=== PATIENT | female | born 1980 | race Caucasian/White ===

== ENCOUNTER 2019-03-15 13:03 | Observation (INO) | payer MEDICARE, MEDICAID ==
[~2019-03-15 13:03] MED LIST: ISOVUE-370 76%-LOCM 1 ML ONE
--- NOTE | 2019-03-15 14:16 | CT ---
SOFT TISSUE NECK CT WITH CONTRAST: HISTORY: Difficulty swallowing. Dysphagia. FINDINGS: The visualized brain parenchyma and orbits are unremarkable. Adequate aeration of the sinuses and mastoid air cells. Limited evaluation of the oral cavity due to dental amalgam artifact. Midline fatty raphe of the [place] k[place] appears o be preserved. The epiglottis is of normal caliber. Pre-epiglottic fat is preserved. The aerodigestive tract appears to be patent. Symmetric attenuation of the parotid and submandibular glands. Unremarkable thyroid gland. No evide nce of significant lymphadenopathy. Upper normal right level 2 lymph node, measuring 1.3 x 0.6 cm. Additional scattered nonspecific lymph nodes are noted. There is a round, nonenlarged lymph node in the left aspect of the neck, measuring 0.7 x 0.6 cm. The round configuration of the lymph node is somewhat atypical. The fatty hilum is not appreciated. There is an upper normal left level 2 lymph node, measuring 1.0 x 0.7 cm. Symmetric attenuation of the sternocleidomastoid muscles. Grossly, the great vessels are patent. Cervical spine vertebral body height is maintained. There is no fracture. No significant central canal stenosis or significant foraminal narrowing. The exam is unremarkable. Patchy groundglass opacities of the lung parenchyma. IMPRESSION: 1. No obvious masses in the aerodigestive tract. 2. Round left level 5 lymph nodes, nonspecific. If concern for malignancy, consider PET imaging . CODE T Transcribed Date/Time: 03/15/2019 2:26 PM
[2019-03-15] MEDS ORDERED: Acetaminophen 325 MG TAB PO PRN (20:34)
[2019-03-15] MEDS ORDERED: Senokot S 8.6-50 MG TAB PO PRN (20:34)
[2019-03-15] MEDS ORDERED: Dextrose 50% Abboject 50 ML SYRINGE SLOW IVP PRN (20:46)
[2019-03-15] MEDS ORDERED: HumaLOG 300 UNITS/3 ML VIAL SC PRN (20:46)
[2019-03-15] MEDS ORDERED: Dextrose 5% in Water 1,000 ML IV PRN (20:46)
[2019-03-15] MEDS: Famotidine 20 MG TAB PO SCH (22:20)
[2019-03-15 22:23] VITALS: BMI 43.9
--- NOTE | 2019-03-16 02:35 | HP ---
PRIMARY CARE PHYSICIAN: TYRA Bradley, [facility]. CODE STATUS: Patient is full code. CHIEF COMPLAINT: Difficulty swallowing, difficulty speaking. HISTORY OF PRESENT ILLNESS: The patient is a 38-year-old female with a past medical history of [facility] who presents with her guardian and adoptive mother, Tri Ochoa. The HPI was taken by both Ms. Ochoa and the patient. The patient is a [facility] patient who attends [facility] in [place] for the past 5 years. Over the past couple of weeks, the patient has become frustrated with some of the medical staff as well as some of the residents at [facility]. So much so that she eloped. After eloping the decision was made by her psychiatrist to start the patient on Klonopin and sertraline. The patient reports that those medicines make her very sleepy, so the past week she has stopped taking those medications. Today, she presented to the [place] ER with her adoptive mother for complaint of difficulty speaking and difficulty swallowing. At the [place] ER, CT without contrast of the brain was performed, which showed negative for any acute intracranial abnormality. The patient's NIH was noted to be 1 at that time for some dysarthria. The patient was transported to [facility] ER for higher level of care and an MRI of the brain. In the ER, the patient was alert and oriented x4, baseline per her zoo caretaker. NIH was 1 for dysarthria. PAST MEDICAL HISTORY: 1. Depression. 2. Sleep apnea. 3. Nonalcoholic fatty liver disease. 4. Hypertension. 5. Diabetes. 6. Hyperlipidemia. 7. Hypothyroidism. 8. Gastroesophageal reflux disease. 9. Anemia. PAST SURGICAL HISTORY: Hysterectomy in 2006, tubal ligation in 2001, right tear duct surgery 1984, ET tubes in 1981. FAMILY HISTORY: The patient has been adopted. PSYCHIATRIC HISTORY: Significant for depression. ALLERGIES: THE PATIENT REPORTS ALLERGIES TO SULFA, METFORMIN, BROMFED DM, AND BROMIDE SALTS. HOME MEDICATIONS: 1. Ferrous sulfate 325 mg p.o. daily. 2. Sertraline 100 mg p.o. b.i.d. 3. Glipizide ER 2.5 mg p.o. daily. 4. Lisinopril 5 mg p.o. daily. 5. Risperidone 3 mg p.o. b.i.d. 6. Fenofibrate 200 mg p.o. daily. 7. Omeprazole 20 mg p.o. daily. 8. Levothyroxine 75 mcg p.o. q.a.m. 9. Atorvastatin 40 mg p.o. daily. 10. Calcium with vitamin D 600 mg p.o. daily. REVIEW OF SYSTEMS: Dysarthria and dyshphagia. All other systems reviewed and are otherwise negative unless stated in the HPI. PHYSICAL EXAMINATION: VITAL SIGNS: Temperature 98 Fahrenheit oral, blood pressure 143/79, pulse 95, respirations 18, the patient is 94% on room air. HEENT: Head is atraumatic and normocephalic. Eyes, PERRLA. Extraocular muscles intact. Sclerae nonicteric. ENT; EACs clear. TMs normal. Nares patent. Oropharynx is clear. Moist mucous membranes. Uvula midline. NECK: Supple. No lymphadenopathy. Trachea midline. RESPIRATIONS: Even, unlabored. No rhonchi, wheezes, or rales. CARDIOVASCULAR: Regular rate and rhythm. No rubs or gallops. GI: Abdomen is distended, is soft, is nontender. No hepatosplenomegaly. EXTREMITIES: Upper extremities, no swelling. No edema. Palpable radial pulses. No clubbing or cyanosis. Bilateral lower extremities, no swelling, no edema, no clubbing, no cyanosis. Palpable pedal pulses. NEURO: The patient is alert and oriented x3. She does have some expressive aphasia. Otherwise, cranial nerves 2 through 7 are intact. Motor strength 5/ 5. Sensation intact. DTRs intact. Nonfocal. SKIN: The patient has multiple scattered crusting papular lesions to extremities and trunk. No associated streaking, fluctuance, or signs of infection. LABORATORY DATA: Sodium 142, potassium 4.1, carbon dioxide 27, AST 31, ALT 38. BUN is 12, creatinine is 0.82, glucose is 121. WBC 7.0, hemoglobin 12.3, hematocrit 36.6, platelets 181. PT 13, APTT 29.5, INR 1.0. CT without contrast of the brain showed no acute intracranial abnormality. EKG; sinus rhythm, sinus tach. ASSESSMENT AND PLAN: 1. Aphasia, dysphagia, rule out stroke. Currently on exam, the patient is showing some expressive aphasia. The patient has no other motor deficits. CT of brain at [facility] was negative. Brain MRI has been ordered. We have consulted Neuro. The patient has been given an aspirin. We will continue aspirin. We will repeat labs in the morning, BMP and CBC. We will consult stroke team. 2. Hypertension. We will restart the patient's home medications. 3. Hypothyroidism. We will restart the patient's home medications. 4. Hyperlipidemia. We will restart the patient's home medications. 5. Diabetes. We will hold the patient's home medications glipizide extended release. We will start Accu-Cheks before meals and at bedtime. We start sliding scale with Humalog. 6. Gastrointestinal and deep venous thrombosis prophylaxis. 7. Hospital course dependent on clinical findings. Job ID: [id number] MTDD
[2019-03-16 05:23] LABS: #Basophils 0.1 thou/uL (0.0-0.2); #Eosinphils 0.1 thou/uL (0.0-0.7); #Lymphocytes 1.3 thou/uL (1.20-3.40); #Monocytes 0.6 thou/uL (0.11-0.59); #Neutrophils 4.5 thou/uL (1.40-6.50); %Basophils 0.9 % (0.0-1.0); %Eosinophils 1.4 % (0.0-10.0); %Lymphocytes 19.6 % (21.0-51.0); %Monocytes 9.4 % (0.0-10.0); %Neutrophils 68.8 % (42.0-75.0); Hemoglobin 12.2 g/dL (12.0-16.0); Mean Corpuscular HGB CONC 34.6 g/dL (32.0-36.0); Mean Corpuscular Hemoglobin 30.9 pg (27.0-31.0); Mean Corpuscular Volume 89.2 fL (78.0-98.0); Mean Platelet Volume 7.9 fL (7.4-10.4); Platelet Count 180 thou/uL (130-400); RBC Distribution Width 12.1 % (11.5-14.5); Red Blood Cell (RBC) Count 3.94 mill/uL (4.20-5.40); White Blood Cell (WBC) Count 6.6 thou/uL (4.8-10.8)
[2019-03-16 05:48] LABS: ALT (SGPT) 31 U/L (8-55); AST (SGOT) 27 U/L (5-34); Albumin 4.3 g/dL (3.5-5.0); Alkaline Phosphatase 50 U/L (40-150); Anion Gap 13 mmol/L (10-20); BUN (Urea Nitrogen) 13 mg/dL (7.0-18.7); Bilirubin, Total 0.4 mg/dL (0.2-1.2); Calc. Creatinine Clearance 138 mL/min (70-130); Calcium 9.6 mg/dL (7.8-10.44); Carbon Dioxide 28 mmol/L (22-29); Cardiac Risk 3.2 (Less than 4.5); Chloride 101 mmol/L (98-107); Cholesterol 135 mg/dl (< 200 Desired); Estimated GFR-MDRD 76; Globulin 2.5 g/dL (2.4-3.5); Glucose 124 mg/dL (70-105); HDL Cholesterol 42 mg/dL (>60 Neg Risk); LDL Cholesterol, Calculated 68 mg/dL; Potassium 3.9 mmol/L (3.5-5.1); Protein, Total 6.8 g/dL (6.0-8.3); Sodium 138 mmol/L (136-145); Triglycerides 125 mg/dL (Less than 150)
--- NOTE | 2019-03-16 08:15 | ULT ---
US Carotid Doppler STANDARD History: [This or 3 a. Dysphagia.] Comparison: None. Findings: Real-time grayscale, color, and spectral analysis of the extracranial carotid and vertebral arteries was performed. No elevated peak systolic velocities within the internal carotid arteries. Antegrade flow both verteb ral arteries. Impression: No hemodynamically significant stenosis.
[2019-03-16] MEDS: Aspirin 325 mg Enteric Coated Tablet PO SCH (08:25)
[2019-03-16] MEDS: Enoxaparin Sodium 40 MG/0.4 ML SYRINGE SC SCH (08:25)
[2019-03-16] MEDS: Famotidine 20 MG TAB PO SCH ×2 (08:25→19:55)
[2019-03-16] MEDS: Lisinopril 5 MG TAB PO SCH (10:37)
[2019-03-16] MEDS: Atorvastatin Calcium 40 MG TAB PO SCH (10:37)
--- NOTE | 2019-03-16 11:47 | MRI ---
MRI Brain WO Con History: [Dysarthria. Lethargy] Comparison: None. Findings: On the diffusion weighted imaging sequence there are no foci of diffusion restriction. This is confirmed on the ADC map. The sun'aq of [place] flow voids are maintained. No hemorrhage on the susceptibility weighted sequence . No hydrocephalus. No midline shift. No edema. No focal area of demyelination. Impression: Normal MRI of the brain.
[2019-03-16] MEDS ORDERED: Loperamide HCl 2 MG CAP PO PRN (14:14)
[2019-03-16 16:12] LABS: Bilirubin Negative (Negative); Blood, Urine Negative (Negative); Clarity CLEAR (Clear); Glucose, Urine (Dipstick) 100 mg/dL (Negative); Leukocyte Negative (Negative); Nitrite Negative (Negative); Protein, Urine (Dipstick) Negative (Neg-Trace); Specific Gravity, Urine 1.005 (1.002-1.036); Urobilinogen 0.2 mg/dL (0.2-1.0); pH, Urine 6.5 (5.0-9.0)
[2019-03-16 16:15] LABS: Bacteria/HPF None Seen HPF (None Seen); Hyaline Casts/LPF 0-3 HYALINE CAST LPF (0-3 Hyaline); Pathc Cast-AUWi Flag 0.13 (0-2.49); RBC/HPF None Seen HPF (0-3); Squamous Epithelial None Seen HPF (0-3); WBC/HPF None Seen HPF (0-3)
[2019-03-16 16:17] LABS: Urine Culture Reflex No No
--- NOTE | 2019-03-16 19:54 | PRG ---
DATE OF SERVICE: 03/16/2019 This is Amada Farrar PA-C dictating a report for Marine Singh MD. SUBJECTIVE: Ms. Lam is an unfortunate 38-year-old female with past medical history for severe MR and cognitive delay, type 2 diabetes mellitus, obesity, hypertension, hypothyroidism, who presented to the hospital with complaints of difficulty speaking and difficulty swallowing. The patient has been admitted for stroke rule out, which has been negative. She has been evaluated by Dr. Simeon of Neurology. The patient continues to complain of problems of swallowing her breakfast this morning. She has been evaluated by Speech Therapy, who was recommending a pureed diet. Her only physical complaint today is interval development of diarrhea. She denies any fever, chills, or abdominal pain. OBJECTIVE: VITAL SIGNS: Blood pressure is 130/90, pulse is 84, O2 saturation is 97% on room air. The patient is afebrile at 97.7. GENERAL: The patient is a morbidly obese female, in no acute distress. She is lying comfortably in bed. HEENT: Head is atraumatic and normocephalic. Extraocular movements are intact, however, she does have a left lateral strabismus. CV: S1 and S2. Regular rate and rhythm. No appreciable murmurs, rubs, or gallops. NEC: Trachea is midline. No JVD. LUNGS: Regular respiratory rate and pattern. Clear to auscultation bilaterally. ABDOMEN: Positive bowel sounds. Soft, obese, nontender. EXTREMITIES: No edema. SKIN: Warm and dry. NEUROLOGIC: Cranial nerves 2 through 12 are grossly intact. The patient is nonfocal on my exam. LABORATORY DATA: Hemoglobin is 12.2, hematocrit 35.2, WBC 6.6, and platelets are 180. Sodium 138, potassium 3.9, anion gap is 13, BUN is 13, creatinine 0.85, calcium 9.6. AST, ALT, alkaline phosphatase all within normal limits. TSH is 3.6419. Triglycerides 125, cholesterol 135, LDL 68, HDL is 42. Urinalysis is negative. ASSESSMENT: 1. Halted speech, no expressive aphasia or obvious dysarthria, unclear etiology at this time, possible conversion disorder from anxiety and stress that the patient has been experiencing, MRI negative for cerebrovascular accident. 2. Severe mental handicap/MR, cognitive delay. 3. Type 2 diabetes mellitus. 4. Interval development of diarrhea with positive lactoferrin. 5. Dysphagia, evaluated by Speech and recommending pureed diet. 6. Hypothyroidism. 7. Hypertension. 8. Hyperlipidemia. 9. Incidental finding around left level 5 lymph nodes, nonspecific per soft tissue x-ray of the neck, consider PET imaging per Radiology. PLAN: At this time, we will arrange for home health and outpatient speech therapy, to be arranged by Case Management. We will monitor the patient overnight and obtain a C diff if she continues to have diarrhea. We will monitor for now, the patient's mother is at bedside and states that her stools are starting to form. We will continue a pureed diet. I have spoken with Dr. Simeon regarding the case and no change to medications or neurologic component to the patient's speech problems at this time. Continue current therapy and expect discharge tomorrow morning if the patient's diarrhea resolved. This case has been discussed with Dr. Singh, who agrees with the above. Job ID: [id number]
--- NOTE | 2019-03-16 20:57 | CON ---
DATE OF CONSULTATION: 03/16/2019 Nurse with telemedicine consult is Amada. CHIEF COMPLAINT: Difficulty with speech. HISTORY OF PRESENT ILLNESS: The patient's mother and father were in the room and they gave medical history. The patient has been mentally retarded from . She was premature and she is now a foster child. The patient's mom was also mentally retarded per her current adoptive mother. The patient has been at her baseline, which is walking with walker. She started to have different behaviors for the past 1 week, everything was not right. She talked about killing herself. The patient has other siblings who are also adopted with special needs, so mother did not pay attention to it. On night, the patient went to her dad's home and the next day when she came back, she woke up her mom and said she cannot talk. She has more strength today than even yesterday. She never had a CVA in the past. PREVIOUS MEDICAL HISTORY: Mental retardation since . Previous medical history also includes depression, sleep apnea, fatty liver, hypertension, diabetes, hyperlipidemia, hypothyroidism, gastroesophageal reflux disease, and anemia. FAMILY HISTORY: She is adopted, but her mother also is known to have mental retardation. PREVIOUS SURGICAL HISTORY: Hysterectomy, inner ear tube repair, tear duct surgery after injury with a dog and prior to that she could not cry and then after that she was able to shed tears. ALLERGIES: SHE IS ALLERGIC TO SULFA, METFORMIN, BROMFED, AND BROMIDE SALT. HOME MEDICATIONS: List is noted per chart. REVIEW OF SYSTEMS: Difficult to obtain due to her speech difficulties and mental capacity. LABORATORY DATA: Her current laboratory workup; white count 6.6, hemoglobin 12.2, hematocrit 35.2, platelet count 180. Chemistry; sodium 138, potassium 3.9, chloride 101, bicarb 28, BUN 13, creatinine 0.85, glucose 124. Cholesterol and lipid profile are within normal limits. TSH 3.6. PHYSICAL EXAMINATION: VITAL SIGNS: Temperature 98.3, pulse 81, blood pressure was 129/79, respiratory rate 17, O2 sats 96. GENERAL APPEARANCE: Well-built well-nourished lady, who is slightly obese. NEUROLOGIC: She has difficulty with expressive aphasia. She is oriented to place and person, not to time. Cranial nerves: Pupils are 2 mm. Loss of sensation on the right side of face only and no facial asymmetry. Tongue midline. Normal extraocular movements. Normal elevation of palate. Normal hearing bilaterally. Motor bulk normal. Tone normal. Strength 5/5 throughout in upper and lower extremities. Muscle groups tested are iliopsoas, hamstrings, quadriceps, ankle dorsiflexion, plantar flexion, deltoid, biceps, triceps, wrist extension and flexion, and finger extension and flexion. Deep tendon reflexes 1+ throughout. On sensory exam, she had decreased sensation of the right arm and face on the right side only. Cerebellar, normal [id number] and [id number]. IMPRESSION: The patient is a 38-year-old lady with history of difficulty with speech and some loss of strength in general and her speech is returning back slowly. She has also had some behavioral changes in the past 1 week. On examination, her speech was not clearly aphasic, but she had some pauses and high-pitched voice. Her MRI scan of the brain was performed after I saw her this morning and it is normal. Echocardiogram did not show any specific abnormalities. Her neurological exam is essentially normal except for slight diminished sensation on the right side. I think her speech issue may be related to her psychiatric issues. Sometimes patients with psychiatric disorders do have pauses in speech. RECOMMENDATIONS: Please consult Psychiatry. I do not think this is an acute stroke. Her stroke workup has been relatively benign and no specific abnormalities are found including carotid artery ultrasound. Please continue aspirin and statins for stroke prophylaxis. She can be discharged when stable. Job ID: [id number] MTDD
[2019-03-17] MEDS ORDERED: Levothyroxine Sodium 75 MCG TAB PO SCH (06:00)
[2019-03-17] MEDS: Enoxaparin Sodium 40 MG/0.4 ML SYRINGE SC SCH (09:12)
[2019-03-17] MEDS: Lisinopril 5 MG TAB PO SCH (09:13)
[2019-03-17] MEDS: Aspirin 325 mg Enteric Coated Tablet PO SCH (09:14)
[2019-03-17] MEDS: Atorvastatin Calcium 40 MG TAB PO SCH (09:14)
[2019-03-17] MEDS: Famotidine 20 MG TAB PO SCH (09:14)
[2019-03-17 11:47] VITALS: BP 131/71; TEMP 97.5
--- NOTE | 2019-03-17 23:50 | DIS ---
DATE OF ADMISSION: 03/15/2019 DATE OF DISCHARGE: 03/17/2019 CHIEF COMPLAINT ON ADMISSION: Dysarthria. DISCHARGE DIAGNOSES: 1. Halted speech. No expressive aphasia or obvious dysarthria, unclear etiology, but suspect conversion disorder from anxiety and stress. 2. Severe mental handicap/mental retardation and severe cognitive delay. 3. Type 2 diabetes mellitus. 4. Dysphagia evaluated by Speech and recommending pureed diet. 5. Hypothyroidism. 6. Hypertension. 7. Hyperlipidemia. 8. Incidental finding of left level 5 lymph nodes per soft tissue x-ray of the neck, with recommendation by Radiology for outpatient PET imaging. BRIEF HOSPITAL COURSE: Ms. Lam is a 38-year-old female with past medical history significant for [facility] and severe cognitive delay, type 2 diabetes mellitus, hypertension, hyperlipidemia, who presented to the emergency department with complaints of trouble speaking. The patient underwent CVA rule out. Her MRI was negative for any acute stroke. Dr. Simeon of Neurology was consulted as well, who recommended further psychiatric evaluation. Her carotid scan was negative as well. Echocardiogram revealed normal left ventricular systolic function. The patient did have an interval development of some diarrhea during her hospital stay, but this has resolved. She has been evaluated by Speech, who is recommending a pureed diet. Prior to her arrival to Emergency Department, her adoptive mother does state that she had some stress and anxiety involving the day program that she attends in [place]. About 3 weeks prior to admission, she had stopped her sertraline and Klonopin on her own. In any case, her workup here was negative. Dr. Simeon is recommending further psychiatric care. The patient feels well this morning. She has no further diarrhea. She is tolerating her pureed diet. She has no other complaints at this time. DISCHARGE DISPOSITION: Home with her mother. DISCHARGE CONDITION: Stable. DISCHARGE INSTRUCTIONS AND FOLLOWUP: The patient will continue aggressive risk factor modification including her aspirin and statin. She will monitor her blood pressure and continue her ADA diet. We have arranged home health with continued speech therapy as an outpatient. She will continue psychiatric care with the psychiatrist that she sees on a regular basis through [facility]. She will also follow up with her primary care physician. All questions answered to the patient's and family's satisfaction. She will be discharged home in good condition today. Job ID: [id number]
== END 2019-03-17 12:35 | disposition home health service (06) ==
LOC: ERS 13:03 → ERHOLD 14:31 → 2SE 17:52
PROVIDERS: ADMIT Internal Medicine; ATTEND Internal Medicine
DX: R47.89 Other speech disturbances (principal); F79 Unspecified intellectual disabilities; G31.84 Mild cognitive impairment of uncertain or unknown etiology; E11.9 Type 2 diabetes mellitus without complications; R13.10 Dysphagia, unspecified; E03.9 Hypothyroidism, unspecified; I10 Essential (primary) hypertension; E78.5 Hyperlipidemia, unspecified; R19.7 Diarrhea, unspecified; G47.33 Obstructive sleep apnea (adult) (pediatric); F32.9 Major depressive disorder, single episode, unspecified; K21.9 Gastro-esophageal reflux disease without esophagitis; D64.9 Anemia, unspecified; E66.9 Obesity, unspecified; Z68.41 Body mass index [BMI] 40.0-44.9, adult; Z99.89 Dependence on other enabling machines and devices; Z88.2 Allergy status to sulfonamides; Z88.8 Allergy status to other drugs, medicaments and biological substances; Z79.899 Other long term (current) drug therapy
CPT/HCPCS: 70491; 70551; 80061; 81001; 82962 ×3; 83630; 93306; 93880; 96372 ×2; 97116; 97139; 99285; G0378 ×2; 36415; 36416; 80053; 84443; 85025; J1650; Q9966